=== PATIENT | female | born 1980 | race African-American/Black ===

== ENCOUNTER 2017-11-26 20:27 | Emergency (ER) | payer OTHER ==
[~2017-11-26] VITALS: Ht 175.3 cm; Wt 86.0 kg
[~2017-11-26 20:27] MED LIST: ERYT1OIN6 OP
[2017-11-27] MEDS ORDERED: IBUPROFEN 600MG TABLET PO ONE (00:15)
[2017-11-27 00:45] LABS: CLARITY URINE CLEAR (CLEAR); COLOR URINE YELLOW (YELLOW); KETONES URINE NEGATIVE (NEGATIVE); LEUKOCYTE ESTERASE URINE TRACE (NEGATIVE); NITRITE URINE POSITIVE (NEGATIVE); OCCULT BLOOD URINE TRACE (NEGATIVE); PROTEIN URINE NEGATIVE (NEGATIVE); SPECIFIC GRAVITY URINE 1.025 (1.005-1.030); UROBILINOGEN URINE 0.2 E.U./dL (0.2-1.0)
[2017-11-27 02:46] VITALS: BP 108/67
== END 2017-11-27 03:00 | disposition home or self-care (01) ==
LOC: ER 20:27
DX: S10.86XA Insect bite of other specified part of neck, initial encounter (principal); L02.11 Cutaneous abscess of neck; E11.9 Type 2 diabetes mellitus without complications; W57.XXXA Bitten or stung by nonvenomous insect and other nonvenomous arthropods, initial encounter; Y93.9 Activity, unspecified; Y92.9 Unspecified place or not applicable
CPT/HCPCS: 81003; 81025; 87077; 87086; 87186; 87491; 87591; 99284

== ENCOUNTER 2020-05-25 20:13 | Emergency (ER) | payer OTHER ==
[~2020-05-25] VITALS: Ht 167.6 cm; Wt 100.0 kg
[2020-05-25] MEDS ORDERED: SODIUM CHLORIDE 0.9% 1,000 ML IV ONE ×3 (22:30→23:30)
[2020-05-25 22:42] LABS: BASOPHILS % 0.5 % (0.0-2.0); HEMATOCRIT. 37.7 % (36.0-48.0); LYMPHOCYTES % 8.4 % (20.0-50.0); MEAN CORPUSCULAR HEMOGLOBIN 22.9 pg (28.0-32.0); MEAN CORPUSCULAR VOLUME 71.9 fL (81.0-99.0); MEAN PLATELET VOLUME 8.2 fl (7.4-10.4); MONOCYTES % 1.8 % (2.0-8.0); NEUTROPHILS % 89.3 % (40.0-76.0); PLATELET 375 x1000/uL (130-400); RED BLOOD CELL COUNT 5.24 mill/uL (4.2-5.4); RED CELL DISTRIBUTION WIDTH 16.9 % (11.6-14.6)
[2020-05-25 22:50] LABS: CHLORIDE 101 mEq/L (98-107)
[2020-05-25 22:52] LABS: HCG SCREEN NEGATIVE
[2020-05-25 22:58] LABS: BETA HYDROXYBUTYRATE 3.2 mMol/L (0.0-0.3)
[2020-05-26] MEDS ORDERED: ALBUTEROL (0.083%) 2.5MG/3ML NEB HHN ONE (01:30)
[2020-05-26 04:00] VITALS: BP 132/86
== END 2020-05-26 05:14 | disposition home or self-care (01) ==
LOC: ER 20:13
DX: E11.65 Type 2 diabetes mellitus with hyperglycemia (principal)
CPT/HCPCS: 36415; 71045; 80053; 82010; 82962; 83690; 84703; 85025; 93005; 96360; 96361; 99285; J7030; Z7610